=== PATIENT | female | born 1965 | race Native Hawaiian/Other Pacific Islander ===

== ENCOUNTER 2021-03-15 08:04 | Outpatient (CLI) | payer OTHER | END 2021-03-15 20:09 | disposition home or self-care (01) | LOC: NM 08:04 | PROVIDERS: ATTEND Specialist | DX: R07.89 Other chest pain (principal); E78.2 Mixed hyperlipidemia; R94.31 Abnormal electrocardiogram [ECG] [EKG]; R00.2 Palpitations | CPT/HCPCS: A9500 ==